=== PATIENT | male | born 1985 | race Caucasian/White ===

== ENCOUNTER → 2024-06-06 08:00 | Outpatient (BNV) | payer OTHER, SELFPAY | PROVIDERS: PCP Family Medicine; Referring Provider Family Medicine; Visit Provider Internal Medicine Medical Oncology | DX: R79.89 Other specified abnormal findings of blood chemistry (principal) | CPT/HCPCS: 99214 ==

== ENCOUNTER 2024-07-22 08:05 | Outpatient (REF) | payer OTHER, SELFPAY ==
[2024-07-22 08:18] LABS: Basophils Absolute Auto 0.1 X10*3/uL (0.0-0.2); Basophils Percent Auto 1.1 % (0-2); Eosinophils Absolute Auto 0.3 X10*3/uL (0.0-0.4); Eosinophils Percent Auto 4.6 % (0-4); Hematocrit 40.9 % (42.0-52.0); Hemoglobin 14.5 g/dl (14.0-18.0); Imm Gran Abs Auto 0.02 X10*3/uL (0.00-0.03); Imm Gran Pct Auto 0.3 % (0.0-0.4); Lymphocytes Percent Auto 27.6 % (20-40); MANUAL DIFF FLAG NO; Mean Corpuscular HGB Conc 35.5 g/dl (31.0-36.0); Mean Corpuscular Hemoglobin 30.5 pg (27.0-33.0); Mean Corpuscular Volume 85.9 fL (80.0-98.0); Mean Platelet Volume 9.4 fL (9.4-12.4); Monocytes Absolute Auto 0.5 X10*3/uL (0.1-1.2); Monocytes Percent Auto 6.8 % (2-11); Neutrophils Absolute Auto 4.3 x10*3/uL (2.0-8.3); Neutrophils Percent Auto 59.6 % (45-73); Platelet Count 210 X10*3/uL (160-400); Red Blood Count 4.76 X10*6/uL (4.60-5.80); Red Cell Distribution Width 12.3 % (11.0-16.0); White Blood Count 7.3 X10*3/uL (4.8-10.8)
[2024-07-22 09:01] LABS: Iron 91 mcg/dL (45-160); Percent Iron Saturation 33 % (15-50); Total Iron Binding Capacity 272 mcg/dL (228-428); Unsaturated Iron Binding 181 ug/dL
[2024-07-22 09:06] LABS: Ferritin 610 ng/mL (20-250)
== END 2024-07-22 08:06 | disposition home or self-care (01) ==
LOC: HO.BBR 08:05
PROVIDERS: PCP Family Medicine; Visit Provider Internal Medicine Medical Oncology
DX: E83.111 Hemochromatosis due to repeated red blood cell transfusions (principal)
CPT/HCPCS: 36415; 82728; 83540; 85014; 85018; 85025; 99195

== ENCOUNTER 2024-10-22 08:06 | Outpatient (REF) | payer OTHER, SELFPAY ==
--- OUTSIDE RECORDS SUMMARY | 2024-10-22 08:11 | XMS_ITS | Clinical Summary ---
Author Organization [employer] Address [address] [place] [address] Care Team Providers Care Investor Relations Analyst Name Role Phone Unavailable Primary Care Provider Unavailabl e Immunizations Name Administration Dates Next Due Influenza, trivalent (IIV3), split virus (single-dose) PF 07/02/2020 Social History Tobacco Use Types Packs/Day Years Used Date Smoking Tobacco: Never Assessed Sex and Gender Information Value Date Recorded Sex Assigned at Not on file Gender Identity Not on file Sexual Orientation Not on file Plan of Treatment Health Maintenance Due Date Last Done Comments Hepatitis C Screening 1985 PHQ-9 Depression Screen 1995 Annual Preventive Exam 2001 Complete Annual HRA 2001 DAVID-7 Anxiety Screen 2001 DTaP,Tdap,and Td Vaccines (1 - Tdap) 2002 COVID-19 Vaccine ( - season) 2024 Influenza Vaccine (#1) 2024 07/02/2020 RSV Vaccine (SCDM) (1 - 1-dose 75+ series) 2058
[2024-10-22 08:23] LABS: MANUAL DIFF FLAG NO
[2024-10-22 08:24] LABS: Basophils Percent Auto 0.7 % (0-2); Eosinophils Absolute Auto 0.3 X10*3/uL (0.0-0.4); Eosinophils Percent Auto 4.3 % (0-4); Hematocrit 40.4 % (42.0-52.0); Hemoglobin 14.4 g/dl (14.0-18.0); Imm Gran Abs Auto 0.02 X10*3/uL (0.00-0.03); Imm Gran Pct Auto 0.3 % (0.0-0.4); Lymphocytes Absolute Auto 1.9 X10*3/uL (1.2-4.9); Lymphocytes Percent Auto 32.9 % (20-40); Mean Corpuscular HGB Conc 35.6 g/dl (31.0-36.0); Mean Corpuscular Hemoglobin 30.1 pg (27.0-33.0); Mean Corpuscular Volume 84.3 fL (80.0-98.0); Mean Platelet Volume 9.1 fL (9.4-12.4); Monocytes Absolute Auto 0.5 X10*3/uL (0.1-1.2); Monocytes Percent Auto 8.8 % (2-11); Neutrophils Absolute Auto 3.1 x10*3/uL (2.0-8.3); Platelet Count 216 X10*3/uL (160-400); Red Blood Count 4.79 X10*6/uL (4.60-5.80); Red Cell Distribution Width 12.2 % (11.0-16.0); White Blood Count 5.8 X10*3/uL (4.8-10.8)
[2024-10-22 09:01] LABS: Iron 127 mcg/dL (45-160); Percent Iron Saturation 48 % (15-50); Total Iron Binding Capacity 266 mcg/dL (228-428); Unsaturated Iron Binding 139 ug/dL
[2024-10-22 09:15] LABS: Ferritin 475 ng/mL (20-250)
== END 2024-10-22 08:07 | disposition home or self-care (01) ==
LOC: HO.BBR 08:06
PROVIDERS: PCP Family Medicine; Visit Provider Internal Medicine Medical Oncology
DX: E83.111 Hemochromatosis due to repeated red blood cell transfusions (principal)
CPT/HCPCS: 36415; 82728; 83540; 85014; 85018; 85025; 99195

== ENCOUNTER 2025-01-20 07:57 | Outpatient (REF) | payer OTHER, SELFPAY ==
--- OUTSIDE RECORDS SUMMARY | 2025-01-20 08:02 | XMS_ITS | Clinical Summary ---
Author Organization [facility] Address [address] [place] [address] Care Team Providers Care Firearms Sales Associate Name Role Phone Unavailable Primary Care Provider Unavailabl e Immunizations Name Administration Dates Next Due Influenza, trivalent (IIV3), split virus (single-dose) PF 07/02/2020 Social History Tobacco Use Types Packs/Day Years Used Date Smoking Tobacco: Never Assessed Sex and Gender Information Value Date Recorded Sex Assigned at Not on file Legal Sex Male 2:33 PM MST Gender Identity Not on file Sexual Orientation Not on file Plan of Treatment Health Maintenance Due Date Last Done Comments Hepatitis C Screening 1985 PHQ-9 Depression Screen 1995 Annual Preventive Exam 2001 Complete Annual HRA 2001 DAVID-7 Anxiety Screen 2001 DTaP,Tdap,and Td Vaccines (1 - Tdap) 2002 COVID-19 Vaccine ( - 2023- season) 2024 Influenza Vaccine (Season Ended) 2025 07/02/20 20 RSV Vaccine (SCDM) (1 - 1-dose 75+ series) 2058 Insurance [facility]
--- OUTSIDE RECORDS SUMMARY | 2025-01-20 08:02 | XMS_ITS ---
Author Organization [facility] Address [address] [place] [address] Care Team Providers Care String Winding Machine Operator Name Role Phone CARTER GARCIA Unavailable [phone] Encounters Encounter Location Date Provider Diagnosis [facility] [address] [place] [address] 03/02/2024 CARTER GARCIA PLAN OF TREATMENT No Information Progress Notes * HELGA JIMÉNEZDOB:1985 ( 39 yo M)Acc No.[id number]:03/02/2024 Patient:??HELGA JIMÉNEZ Provider:??CARTER MARAVILLA PA-C :1985?Age:38 Y?Sex:Ma le Date:03/02/2024 Address[address] [place] Subjective: * Chief Complaints: * ? * Medical History:?? Objective: Assessment: Plan: * Treatment: * Images: Billing Information: * Visit Code:?? * Procedure Codes:?? * Sign off status: Pending * Provider:??CARTER MARAVILLA PA-C Date:??02/16
--- OUTSIDE RECORDS SUMMARY | 2025-01-20 08:02 | XMS_ITS | Patient Health Record ---
Author Organization [facility] Address [address] [place] [address] Care Team Providers Care Design Quality Engineer Name Role Phone CARTER GARCIA Unavailable [phone] REASON FOR REFERRAL No Information Encounters Encounter Location Date Provider Diagnosis [facility] [address] [place] [address] 03/02/[address]ARC[address] [facility] [address] [place] [address] 02/29/2024 CARTER AGUIRRENER [facility] [address] [place] [address] 02/29/2024 CARTER GARCIA PLAN OF TREATMENT No Information Insurance Providers Payer Name Payer Address Payer Phone Subscriber Number Group Number Insured Name Patient Relationship to Insured Coverage Start Date Coverage End Date [facility] [address] [place] [address] [id number] HELGA JIMÉNEZ Self - patient is the insured
--- OUTSIDE RECORDS SUMMARY | 2025-01-20 08:02 | XMS_ITS ---
Author Organization [facility] Address [address] [place] [address] Care Team Providers Care Wood Shop Teacher Name Role Phone CARTER GARCIA Unavailable [phone] REASON FOR VISIT Reschedule Appointment Request Encounters Encounter Location Date Provider Diagnosis [facility] [address] [place] [address] 02/29/2024 CARTER GARCIA PLAN OF TREATMENT No Information Progress Notes * HELGA JIMÉNEZDOB:1985 ( 38 yo M)Acc No.[id number]:02/29/2024 Patient:??HELGA JIMÉNEZ :1985?Age:38 Y?Sex:Linda neetu Address:[address] [place] [address] * true * Date:??
--- OUTSIDE RECORDS SUMMARY | 2025-01-20 08:02 | XMS_ITS ---
Author Organization [facility] Address [address] [place] [address] Care Team Providers Care Gas Meter Reader Name Role Phone CARTER GARCIA Unavailable [phone] REASON FOR VISIT Cancel Appointment Request Encounters Encounter Location Date Provider Diagnosis [facility] [address] [place] [address] 02/29/2024 CARTER GARCIA PLAN OF TREATMENT No Information Progress Notes * HELGA JIMÉNEZDOB:1985 ( 38 yo M)Acc No.[id number]:02/29/2024 Patient:??HELGA JIMÉNEZ :1985?Age:38 Y?Sex:Linda de anda Address:[address] [place] [address] * true * Date:??
[2025-01-20 08:15] LABS: MANUAL DIFF FLAG NO
[2025-01-20 08:16] LABS: Basophils Absolute Auto 0.1 X10*3/uL (0.0-0.2); Basophils Percent Auto 0.8 % (0-2); Eosinophils Absolute Auto 0.3 X10*3/uL (0.0-0.4); Eosinophils Percent Auto 3.6 % (0-4); Hematocrit 38.2 % (42.0-52.0); Hemoglobin 13.5 g/dl (14.0-18.0); Imm Gran Abs Auto 0.03 X10*3/uL (0.00-0.03); Imm Gran Pct Auto 0.4 % (0.0-0.4); Lymphocytes Absolute Auto 2.3 X10*3/uL (1.2-4.9); Lymphocytes Percent Auto 28.2 % (20-40); Mean Corpuscular HGB Conc 35.3 g/dl (31.0-36.0); Mean Corpuscular Hemoglobin 30.1 pg (27.0-33.0); Mean Corpuscular Volume 85.1 fL (80.0-98.0); Mean Platelet Volume 9.7 fL (9.4-12.4); Monocytes Absolute Auto 0.6 X10*3/uL (0.1-1.2); Monocytes Percent Auto 7.6 % (2-11); Neutrophils Absolute Auto 4.7 x10*3/uL (2.0-8.3); Neutrophils Percent Auto 59.4 % (45-73); Platelet Count 236 X10*3/uL (160-400); Red Blood Count 4.49 X10*6/uL (4.60-5.80); Red Cell Distribution Width 12.3 % (11.0-16.0)
[2025-01-20 08:53] LABS: Iron 107 mcg/dL (45-160); Percent Iron Saturation 40 % (15-50); Total Iron Binding Capacity 265 mcg/dL (228-428); Unsaturated Iron Binding 158 ug/dL
[2025-01-20 09:07] LABS: Ferritin 279 ng/mL (20-250)
== END 2025-01-20 07:58 | disposition home or self-care (01) ==
LOC: HO.BBR 07:57
PROVIDERS: PCP Family Medicine; Visit Provider Internal Medicine Medical Oncology
DX: E83.10 Disorder of iron metabolism, unspecified (principal)
CPT/HCPCS: 36415; 82728; 83540; 85018; 85025; 99195

== ENCOUNTER 2025-04-24 08:00 | Outpatient (REF) | payer OTHER, SELFPAY ==
--- OUTSIDE RECORDS SUMMARY | 2025-04-24 08:03 | XMS_ITS | Patient Health Record ---
Author Organization [facility] [address] Address [address] [place] [address] Care Team Providers Care Surgical Pathologist Name Role Phone CARTER GARCIA Unavailable [phone] Reason For Referral No Information Plan Of Treatment No Information Insurance Providers Payer Name Payer Address Payer Phone Subscriber Number Group Number Insured Name Patient Relationship to Insured Coverage Start Date Coverage End Date [facility] [address] [place] [address] [id number] HELGA JIMÉNEZ Self - patient is the insured
--- OUTSIDE RECORDS SUMMARY | 2025-04-24 08:03 | XMS_ITS | Clinical Summary ---
Author Organization [facility] Address [address] [place] [address] Care Team Providers Care Last Sorter Name Role Phone Unavailable Primary Care Provider Unavailabl e Immunizations Immunization Administration Dates Next Due Influenza, trivalent (IIV3), [...] ( - 2023- season) 2024 Influenza Vaccine (#1) 2025 07/02/2020 RSV Vaccine (SCDM) (1 - 1-dose 75+ series) 2058 Insurance [employer]
[2025-04-24 08:11] LABS: MANUAL DIFF FLAG NO
[2025-04-24 08:13] LABS: Hematocrit 38.3 % (42.0-52.0); Hemoglobin 13.8 g/dl (14.0-18.0); Imm Gran Abs Auto 0.02 X10*3/uL (0.00-0.03); Imm Gran Pct Auto 0.3 % (0.0-0.4); Lymphocytes Absolute Auto 1.9 X10*3/uL (1.2-4.9); Mean Corpuscular HGB Conc 36.0 g/dl (31.0-36.0); Mean Corpuscular Hemoglobin 30.1 pg (27.0-33.0); Mean Corpuscular Volume 83.6 fL (80.0-98.0); NRBC Abs Auto 0.000 X10*3/uL (0.0-0.012); NRBC Pct Auto 0.0 /100WBC (0.0-0.2); Platelet Count 201 X10*3/uL (160-400); Red Blood Count 4.58 X10*6/uL (4.60-5.80); White Blood Count 6.3 X10*3/uL (4.8-10.8)
[2025-04-24 08:57] LABS: Iron 80 mcg/dL (45-160); Percent Iron Saturation 29 % (15-50); Total Iron Binding Capacity 280 mcg/dL (228-428); Unsaturated Iron Binding 200 ug/dL
[2025-04-24 09:13] LABS: Ferritin 296 ng/mL (20-250)
== END 2025-04-24 08:01 | disposition home or self-care (01) ==
LOC: HO.BBR 08:00
PROVIDERS: PCP Family Medicine; Visit Provider Internal Medicine Medical Oncology
DX: E83.111 Hemochromatosis due to repeated red blood cell transfusions (principal)
CPT/HCPCS: 36415; 82728; 83540; 85018; 85025; 99195